=== PATIENT | female | born 1945 | race Hispanic/Latino ===

== ENCOUNTER 2020-09-09 13:25 | Outpatient (CLI) | payer MEDICARE ==
--- NOTE | 2020-09-09 16:03 | Magnetic Resonance Report ---
. MR brain wo/w con INDICATION / CLINICAL INFORMATION: 75 years Female; MALIGNANT NEOPLASM OF UPPER LOBE,RIGHT BRONCHUS OF LUNG. TECHNIQUE: Multiplanar, multisequence MR images of the brain were obtained. COMPARISON: None available. FINDINGS: BRAIN / INTRACRANIAL CONTENTS: No acute hemorrhage, mass effect, midline shift, hydrocephalus, or acu te, large territorial infarct. Mild, diffuse cerebral atrophy is seen, which is most prevalent in the parietal lobes. There are mild, diffuse areas of increased signal intensity on FLAIR imaging in the white matter of t he cerebral hemispheres. These are nonspecific findings and may be related to microangiopathy (hypert ension, diabetes, atherosclerosis), given the patient's age. CRANIOCERVICAL JUNCTION: No significant abnormality. VASCULAR FLOW-VOIDS: No significant abnormality. ORBITS: No significant abnormality of visualized orbits. SINUSES / MASTOIDS: Mild to moderate mucosal thickening in the inferior mastoids bilaterally, as well as the ethmoids. ADDITIONAL FINDINGS: None. IMPRESSION: 1. No focal mass, hemorrhage, hydrocephalus, or acute ischemia. Signer Name: Kenn Don MD, III Signed: 09/09/2020 3:58 PM Workstation Name: [id number]
== END 2020-09-09 13:26 | disposition home or self-care (01) ==
LOC: MRI 13:25
PROVIDERS: ATTEND Internal Medicine Hematology & Oncology
DX: C34.11 Malignant neoplasm of upper lobe, right bronchus or lung (principal); J44.9 Chronic obstructive pulmonary disease, unspecified
CPT/HCPCS: 70553; A9575